=== PATIENT | female | born 1955 | race Caucasian/White ===

== ENCOUNTER → 2018-02-28 | Outpatient (CLI) | payer OTHER ==
[~2018-02-28] MED LIST: SYNTHROID75 MCG PO
== END ==
LOC: RAD 01:16
DX: Z12.31 Encounter for screening mammogram for malignant neoplasm of breast (principal); R92.0 Mammographic microcalcification found on diagnostic imaging of breast

== ENCOUNTER → 2018-03-03 | Outpatient (CLI) | payer OTHER | LOC: RAD 00:32 | DX: R92.8 Other abnormal and inconclusive findings on diagnostic imaging of breast (principal) ==

== ENCOUNTER → 2018-11-17 | Outpatient (CLI) | payer OTHER | LOC: RAD 01:07 | DX: R92.8 Other abnormal and inconclusive findings on diagnostic imaging of breast (principal) ==

== ENCOUNTER → 2019-11-24 | Outpatient (CLI) | payer OTHER | LOC: BC 10:04 | DX: Z12.31 Encounter for screening mammogram for malignant neoplasm of breast (principal) ==